=== PATIENT | male | born 1990 | race Hispanic/Latino ===

== ENCOUNTER → 2025-02-04 | Day surgery (SDC) | payer OTHER ==
[~2025-02-04] MED LIST: PNEUMOC 20-VAL CONJ-DIP CRM/PF 0.5 ML SYRINGE IM ONE; Sodium Bicarbonate 2.5 MEQ/5 ML SDV ONE
[2025-02-04 09:02] VITALS: BP 139/86; TEMP 98.5
== END ==
LOC: CSHULT 08:35
PROVIDERS: ATTEND Internal Medicine Hematology & Oncology
PROC: 0W9G30Z Drainage of Peritoneal Cavity with Drainage Device, Percutaneous Approach (ICD-10-PCS; principal; 2025-02-04)
DX: C48.0 Malignant neoplasm of retroperitoneum (principal); R18.8 Other ascites
CPT/HCPCS: 49083; P9047

== ENCOUNTER 2025-02-16 09:25 | Outpatient (CLI) | payer OTHER ==
[2025-02-16] MEDS ORDERED: Iopamidol 300 61% 100 ML VIAL FS ONE (10:37)
== END 2025-02-16 09:26 | disposition home or self-care (01) ==
LOC: CSHCT 09:25
PROVIDERS: ATTEND Internal Medicine Hematology & Oncology
DX: C48.0 Malignant neoplasm of retroperitoneum (principal); R18.8 Other ascites; J90 Pleural effusion, not elsewhere classified; J98.11 Atelectasis
CPT/HCPCS: 71260; 72193; Q9967

== ENCOUNTER 2025-02-17 09:47 | Outpatient (CLI) | payer OTHER | END 2025-02-17 09:48 | disposition home or self-care (01) | LOC: CSHMRI 09:47 | PROVIDERS: ATTEND Internal Medicine Hematology & Oncology | DX: C48.0 Malignant neoplasm of retroperitoneum (principal); J90 Pleural effusion, not elsewhere classified; D18.03 Hemangioma of intra-abdominal structures; R18.8 Other ascites | CPT/HCPCS: 74183 ==

== ENCOUNTER 2025-03-25 08:26 | Day surgery (SDC) | payer OTHER ==
[2025-03-25 09:58] VITALS: BP 152/94; TEMP 98.6
[2025-03-25] MEDS ORDERED: Sodium Bicarbonate 2.5 MEQ/5 ML SDV ONE (10:06)
[2025-03-25] MEDS ORDERED: FLU (Fluarix Triv) 25-26 (6MOS UP)/PF 45 MCG/0.5 ML Syringe IM ONE (10:15)
[2025-03-25] MEDS ORDERED: PNEUMOC 20-VAL CONJ-DIP CRM/PF 0.5 ML SYRINGE IM ONE (10:15)
== END 2025-03-25 10:31 | disposition home or self-care (01) ==
LOC: CSHULT 08:26
PROVIDERS: ATTEND Internal Medicine Hematology & Oncology
PROC: 0W9G3ZZ Drainage of Peritoneal Cavity, Percutaneous Approach (ICD-10-PCS; principal; 2025-03-25)
DX: R18.8 Other ascites (principal); C48.0 Malignant neoplasm of retroperitoneum; I10 Essential (primary) hypertension; Z88.8 Allergy status to other drugs, medicaments and biological substances; Z87.891 Personal history of nicotine dependence; Z79.899 Other long term (current) drug therapy
CPT/HCPCS: 49083; P9047

== ENCOUNTER 2025-04-15 09:07 | Day surgery (SDC) | payer OTHER ==
[2025-04-15 09:32] VITALS: BP 139/86; TEMP 99.5
[2025-04-15] MEDS ORDERED: FLU (Fluarix Triv) 25-26 (6MOS UP)/PF 45 MCG/0.5 ML Syringe IM ONE (10:00)
[2025-04-15] MEDS ORDERED: PNEUMOC 20-VAL CONJ-DIP CRM/PF 0.5 ML SYRINGE IM ONE (10:00)
== END 2025-04-15 09:50 | disposition home or self-care (01) ==
LOC: CSHULT 09:07
PROVIDERS: ATTEND Internal Medicine Hematology & Oncology
DX: R18.8 Other ascites (principal); Z53.8 Procedure and treatment not carried out for other reasons; C48.0 Malignant neoplasm of retroperitoneum; I10 Essential (primary) hypertension; Z88.8 Allergy status to other drugs, medicaments and biological substances
CPT/HCPCS: 76705; 93976; P9047

== ENCOUNTER → 2025-05-06 | Day surgery (SDC) | payer OTHER | LOC: CSHULT 08:50 | PROVIDERS: ATTEND Internal Medicine Hematology & Oncology | DX: R18.8 Other ascites (principal); Z53.8 Procedure and treatment not carried out for other reasons; C48.0 Malignant neoplasm of retroperitoneum; I10 Essential (primary) hypertension; Z87.891 Personal history of nicotine dependence; Z88.8 Allergy status to other drugs, medicaments and biological substances | CPT/HCPCS: 76705; 93976 ==

== ENCOUNTER → 2025-05-24 | Day surgery (SDC) | payer OTHER | LOC: CSHULT 13:07 | PROVIDERS: ATTEND Internal Medicine Hematology & Oncology | PROC: 0W9G30Z Drainage of Peritoneal Cavity with Drainage Device, Percutaneous Approach (ICD-10-PCS; principal; 2025-05-24) | DX: C48.0 Malignant neoplasm of retroperitoneum (principal); Z88.8 Allergy status to other drugs, medicaments and biological substances; I10 Essential (primary) hypertension | CPT/HCPCS: 76705; 93976 ==